=== PATIENT | male | born 1975 | race Two or more races ===

== ENCOUNTER 2021-05-08 19:15 | Inpatient (IN) | payer MEDICAID ==
[~2021-05-08] VITALS: Ht 167.6 cm; Wt 62.7 kg
[2021-05-08] MEDS ORDERED: VANCOMYCIN HCL 1.5 GM in DEXTROSE 5%-WATER 250 ML IV ONE (22:30)
[2021-05-08] MEDS ORDERED: CefTRIAXone 1 GM/DEXTROSE 50 ML IV ONE (22:30)
[2021-05-08 22:35] LABS: BASOPHILS % (AUTO) 0.6 % (0.0-2.0); EOSINOPHILS % (AUTO) 1.5 % (1.0-6.0); HEMATOCRIT 44.4 % (41-53); HEMOGLOBIN 15.1 g/dL (13.5-17.5); LYMPHOCYTES # (AUTO) 3.1 K/uL (1.0-4.8); LYMPHOCYTES % (AUTO) 19.4 % (22.0-44.0); MEAN CORPUSCULAR HEMOGLOBIN 28.7 pg (26.0-34.0); MEAN CORPUSCULAR VOLUME 84 fL (80-100); MONOCYTES # (AUTO) 1.4 K/uL (0.1-1.0); MONOCYTES % (AUTO) 8.7 % (2.0-9.0); NEUTROPHILS # (AUTO) 11.2 K/uL (1.8-7.7); NEUTROPHILS % (AUTO) 69.8 % (40.0-70.0); PLATELET COUNT (AUTO) 259 K/uL (150-450); RED BLOOD CELL COUNT(AUTO) 5.26 MIL/uL (4.50-5.90); RED CELL DISTRIBUTION WIDTH 12.7 % (11.5-14.5)
[2021-05-08] MEDS ORDERED: KETOROLAC TROMETHAMINE 30 MG/ML VIAL IVP ONE (22:45)
[2021-05-08 22:52] LABS: ANION GAP 5 mmol/L (8-16); CARBON DIOXIDE 33 mmol/L (22-29); CHLORIDE 103 mmol/L (98-107); CREATININE 0.82 mg/dL (0.60-1.30); GLOMERULAR FILTR. RATE CALC > 60 mL/min (>60); GLUCOSE,RANDOM 96 mg/dL (70-110); POTASSIUM 4.5 mmol/L (3.5-5.1); SODIUM SERUM 141 mmol/L (136-145); UREA NITROGEN, BLOOD 17 mg/dL (7-18)
[2021-05-08] MEDS ORDERED: GADOTERATE MEGLUMINE 10 MMOL/20 ML VIAL IVP ONE (22:54)
[2021-05-08 22:58] LABS: ALANINE AMINOTRANSFERASE 35 U/L (12-78); ALKALINE PHOSPHATASE 92 U/L (46-116); ASPARTATE AMINOTRANSFERASE 18 U/L (15-37); BILIRUBIN,TOTAL 0.4 mg/dL (0.1-1.0); TOTAL PROTEIN, SERUM 9.4 g/dL (6.4-8.2)
[2021-05-08] MEDS ORDERED: ONDANSETRON HCL 4 MG/2 ML VIAL IVP PRN (23:15)
[2021-05-08] MEDS ORDERED: SODIUM CHLORIDE 0.9% 1,000 ML IV ONE (23:15)
[2021-05-08] MEDS ORDERED: ACETAMINOPHEN 325 MG TABLET PO PRN (23:15)
[2021-05-08] MEDS ORDERED: MAGNESIUM HYDROXIDE SUSPENSION 30 ML UDCUP PO PRN (23:15)
[2021-05-09 00:14] LABS: COVID AG,FIA SOURCE NASOPHARYNGEAL
[2021-05-09 02:22] VITALS: BP 138/87
[2021-05-09 04:18] VITALS: BP 121/77
[2021-05-09] MEDS: MORPHINE SULFATE 2 MG/ML SYRINGE IVP PRN (06:20)
[2021-05-09] MEDS ORDERED: VANCOMYCIN HCL 1 GM/D5% WATER 200 ML IV ONE (08:00)
[2021-05-09 08:12] VITALS: BP 122/77
[2021-05-09] MEDS: FAMOTIDINE 20 MG TABLET PO SCH (09:00)
[2021-05-09] MEDS: DOCUSATE SODIUM 100 MG CAPSULE PO SCH ×2 (09:00→20:16)
[2021-05-09] MEDS: VANCOMYCIN HCL 750 MG in DEXTROSE 5%-WATER 250 ML IV SCH ×3 (09:37→23:34)
[2021-05-09] MEDS ORDERED: SODIUM CHLORIDE 0.9% 0 ML ONE ×2 (09:46→10:42)
[2021-05-09] MEDS ORDERED: SODIUM CHLORIDE 0.9% 1,000 ML ONE (09:49)
[2021-05-09] MEDS ORDERED: LIDOCAINE/PF 1% 30 ML VIAL ONE (09:49)
[2021-05-09] MEDS ORDERED: LIDOCAINE/PF 1% 30 ML VIAL PERC ONE (10:40)
[2021-05-09 15:41] VITALS: BP 120/76
[2021-05-09] MEDS: OxyCODONE HCL/ACETAMINOPHEN 5-325 MG TABLET PO PRN (17:03)
[2021-05-09 20:06] VITALS: BP 115/69
[2021-05-09] MEDS: CefTRIAXone 1 GM/DEXTROSE 50 ML IV SCH (22:28)
[2021-05-10 04:52] VITALS: BP 114/76
[2021-05-10] MEDS ORDERED: PROPOFOL 1% 20 ML VIAL IVP ONE (06:31)
[2021-05-10] MEDS ORDERED: KETOROLAC TROMETHAMINE 60 MG/2 ML VIAL IM ONE (06:31)
[2021-05-10] MEDS ORDERED: ONDANSETRON HCL 4 MG/2 ML VIAL IVP ONE (06:31)
[2021-05-10] MEDS ORDERED: FentaNYL CITRATE PF 100 MCG/2 ML VIAL IVP ONE (06:31)
[2021-05-10] MEDS ORDERED: LIDOCAINE/PF 2% 5 ML VIAL IM ONE (06:31)
[2021-05-10 07:28] LABS: BASOPHILS % (AUTO) 0.3 % (0.0-2.0); EOSINOPHILS % (AUTO) 2.4 % (1.0-6.0); HEMATOCRIT 39.3 % (41-53); HEMOGLOBIN 13.3 g/dL (13.5-17.5); LYMPHOCYTES # (AUTO) 3.1 K/uL (1.0-4.8); LYMPHOCYTES % (AUTO) 21.6 % (22.0-44.0); MEAN CORPUSCULAR HEMOGLOBIN 28.6 pg (26.0-34.0); MEAN CORPUSCULAR HGB CONC 33.9 G/dL (31.0-37.0); MEAN CORPUSCULAR VOLUME 85 fL (80-100); MONOCYTES # (AUTO) 1.5 K/uL (0.1-1.0); MONOCYTES % (AUTO) 10.2 % (2.0-9.0); NEUTROPHILS # (AUTO) 9.3 K/uL (1.8-7.7); NEUTROPHILS % (AUTO) 65.5 % (40.0-70.0); PLATELET COUNT (AUTO) 221 K/uL (150-450); RED BLOOD CELL COUNT(AUTO) 4.65 MIL/uL (4.50-5.90); RED CELL DISTRIBUTION WIDTH 12.6 % (11.5-14.5)
[2021-05-10 07:46] LABS: ANION GAP 11 mmol/L (8-16); CALCIUM, TOTAL 8.9 mg/dL (8.8-10.5); CARBON DIOXIDE 25 mmol/L (22-29); CHLORIDE 104 mmol/L (98-107); CREATININE 0.79 mg/dL (0.60-1.30); GLOMERULAR FILTR. RATE CALC > 60 mL/min (>60); GLUCOSE,RANDOM 83 mg/dL (70-110); POTASSIUM 3.9 mmol/L (3.5-5.1); SODIUM SERUM 140 mmol/L (136-145); UREA NITROGEN, BLOOD 13 mg/dL (7-18)
[2021-05-10 08:43] VITALS: BP 133/79
[2021-05-10] MEDS: FAMOTIDINE 20 MG TABLET PO SCH (09:02)
[2021-05-10] MEDS: DOCUSATE SODIUM 100 MG CAPSULE PO SCH ×2 (09:02→20:58)
[2021-05-10] MEDS: VANCOMYCIN HCL 750 MG in DEXTROSE 5%-WATER 250 ML IV SCH ×2 (09:13→16:57)
[2021-05-10] MEDS: OxyCODONE HCL/ACETAMINOPHEN 5-325 MG TABLET PO PRN (11:27)
[2021-05-10 16:01] VITALS: BP 130/75
[2021-05-10 20:20] VITALS: BP 125/89
[2021-05-10] MEDS: CefTRIAXone 1 GM/DEXTROSE 50 ML IV SCH (22:23)
[2021-05-11] MEDS: VANCOMYCIN HCL 750 MG in DEXTROSE 5%-WATER 250 ML IV SCH ×3 (00:01→16:08)
[2021-05-11 04:54] VITALS: BP 117/73
[2021-05-11] MEDS: FAMOTIDINE 20 MG TABLET PO SCH (08:30)
[2021-05-11] MEDS: MORPHINE SULFATE 2 MG/ML SYRINGE IVP PRN (08:34)
[2021-05-11 08:42] VITALS: BP 132/92
[2021-05-11] MEDS: DOCUSATE SODIUM 100 MG CAPSULE PO SCH ×2 (09:15→21:26)
[2021-05-11 09:25] LABS: ANION GAP 11 mmol/L (8-16); CALCIUM, TOTAL 9.3 mg/dL (8.8-10.5); CARBON DIOXIDE 24 mmol/L (22-29); CHLORIDE 102 mmol/L (98-107); CREATININE 0.91 mg/dL (0.60-1.30); GLOMERULAR FILTR. RATE CALC > 60 mL/min (>60); GLUCOSE,RANDOM 169 mg/dL (70-110); POTASSIUM 4.1 mmol/L (3.5-5.1); SODIUM SERUM 137 mmol/L (136-145); UREA NITROGEN, BLOOD 11 mg/dL (7-18); VANCOMYCIN,RANDOM 18.1 mcg/mL (25.0-50.0)
[2021-05-11 10:17] LABS: BASOPHILS % (AUTO) 0.4 % (0.0-2.0); EOSINOPHILS % (AUTO) 1.9 % (1.0-6.0); HEMATOCRIT 42.6 % (41-53); HEMOGLOBIN 14.3 g/dL (13.5-17.5); LYMPHOCYTES # (AUTO) 2.5 K/uL (1.0-4.8); LYMPHOCYTES % (AUTO) 17.6 % (22.0-44.0); MEAN CORPUSCULAR HEMOGLOBIN 28.2 pg (26.0-34.0); MEAN CORPUSCULAR HGB CONC 33.5 G/dL (31.0-37.0); MEAN CORPUSCULAR VOLUME 84 fL (80-100); MONOCYTES % (AUTO) 7.3 % (2.0-9.0); NEUTROPHILS # (AUTO) 10.3 K/uL (1.8-7.7); NEUTROPHILS % (AUTO) 72.8 % (40.0-70.0); PLATELET COUNT (AUTO) 257 K/uL (150-450); RED BLOOD CELL COUNT(AUTO) 5.05 MIL/uL (4.50-5.90); RED CELL DISTRIBUTION WIDTH 12.6 % (11.5-14.5)
[2021-05-11] MEDS ORDERED: GADOTERATE MEGLUMINE 10 MMOL/20 ML VIAL IVP ONE (15:53)
[2021-05-11 17:34] VITALS: BP 119/81
[2021-05-11 20:19] VITALS: BP 145/92
[2021-05-11] MEDS: CefTRIAXone 1 GM/DEXTROSE 50 ML IV SCH (21:29)
[2021-05-12] MEDS: VANCOMYCIN HCL 750 MG in DEXTROSE 5%-WATER 250 ML IV SCH ×3 (00:11→15:27)
[2021-05-12 05:13] VITALS: BP 135/90
[2021-05-12 07:46] LABS: ANION GAP 9 mmol/L (8-16); CALCIUM, TOTAL 9.4 mg/dL (8.8-10.5); CARBON DIOXIDE 26 mmol/L (22-29); CHLORIDE 102 mmol/L (98-107); CREATININE 0.76 mg/dL (0.60-1.30); GLOMERULAR FILTR. RATE CALC > 60 mL/min (>60); GLUCOSE,RANDOM 98 mg/dL (70-110); POTASSIUM 3.9 mmol/L (3.5-5.1); SODIUM SERUM 137 mmol/L (136-145); UREA NITROGEN, BLOOD 13 mg/dL (7-18); VANCOMYCIN,RANDOM 12.1 mcg/mL (25.0-50.0)
[2021-05-12] MEDS: DOCUSATE SODIUM 100 MG CAPSULE PO SCH ×2 (08:07→20:04)
[2021-05-12] MEDS: FAMOTIDINE 20 MG TABLET PO SCH (08:07)
[2021-05-12 08:11] VITALS: BP 120/89
[2021-05-12 08:57] LABS: BASOPHILS % (AUTO) 0.6 % (0.0-2.0); EOSINOPHILS % (AUTO) 3.1 % (1.0-6.0); HEMATOCRIT 42.5 % (41-53); HEMOGLOBIN 14.4 g/dL (13.5-17.5); LYMPHOCYTES # (AUTO) 2.8 K/uL (1.0-4.8); LYMPHOCYTES % (AUTO) 21.8 % (22.0-44.0); MEAN CORPUSCULAR HEMOGLOBIN 28.5 pg (26.0-34.0); MEAN CORPUSCULAR HGB CONC 33.8 G/dL (31.0-37.0); MEAN CORPUSCULAR VOLUME 84 fL (80-100); MONOCYTES # (AUTO) 1.3 K/uL (0.1-1.0); MONOCYTES % (AUTO) 10.6 % (2.0-9.0); NEUTROPHILS # (AUTO) 8.1 K/uL (1.8-7.7); NEUTROPHILS % (AUTO) 63.9 % (40.0-70.0); PLATELET COUNT (AUTO) 272 K/uL (150-450); RED BLOOD CELL COUNT(AUTO) 5.04 MIL/uL (4.50-5.90); RED CELL DISTRIBUTION WIDTH 12.6 % (11.5-14.5)
[2021-05-12 10:46] VITALS: BP 118/82
[2021-05-12] MEDS ORDERED: SULF-261 PO (11:17)
[2021-05-12 15:37] VITALS: BP 133/88
[2021-05-12] MEDS: OxyCODONE HCL/ACETAMINOPHEN 5-325 MG TABLET PO PRN (20:04)
[2021-05-12 20:24] VITALS: BP 127/85
[2021-05-12] MEDS: CefTRIAXone 1 GM/DEXTROSE 50 ML IV SCH (21:14)
[2021-05-13] MEDS: VANCOMYCIN HCL 750 MG in DEXTROSE 5%-WATER 250 ML IV SCH ×3 (01:02→15:28)
[2021-05-13 04:50] VITALS: BP 112/69
[2021-05-13 06:27] LABS: ANION GAP 10 mmol/L (8-16); CALCIUM, TOTAL 9.3 mg/dL (8.8-10.5); CARBON DIOXIDE 27 mmol/L (22-29); CHLORIDE 103 mmol/L (98-107); CREATININE 0.86 mg/dL (0.60-1.30); GLOMERULAR FILTR. RATE CALC > 60 mL/min (>60); GLUCOSE,RANDOM 97 mg/dL (70-110); POTASSIUM 3.9 mmol/L (3.5-5.1); SODIUM SERUM 140 mmol/L (136-145); UREA NITROGEN, BLOOD 11 mg/dL (7-18)
[2021-05-13] MEDS: FAMOTIDINE 20 MG TABLET PO SCH (08:11)
[2021-05-13] MEDS: DOCUSATE SODIUM 100 MG CAPSULE PO SCH (08:11)
[2021-05-13 08:23] LABS: BASOPHILS % (AUTO) 0.6 % (0.0-2.0); EOSINOPHILS % (AUTO) 4.4 % (1.0-6.0); HEMATOCRIT 40.5 % (41-53); HEMOGLOBIN 13.8 g/dL (13.5-17.5); LYMPHOCYTES # (AUTO) 2.4 K/uL (1.0-4.8); MEAN CORPUSCULAR HEMOGLOBIN 28.7 pg (26.0-34.0); MEAN CORPUSCULAR VOLUME 85 fL (80-100); MONOCYTES # (AUTO) 1.1 K/uL (0.1-1.0); MONOCYTES % (AUTO) 10.8 % (2.0-9.0); NEUTROPHILS % (AUTO) 60.2 % (40.0-70.0); PLATELET COUNT (AUTO) 265 K/uL (150-450); RED CELL DISTRIBUTION WIDTH 12.5 % (11.5-14.5)
[2021-05-13] MEDS ORDERED: POVIDONE-IODINE 10% 120 ML SOLUTION TP SCH (09:00)
[2021-05-13 09:06] VITALS: BP 118/67
== END 2021-05-13 17:00 | disposition home or self-care (01) | DRG 951 ==
LOC: EMS 19:16 → 6N 05-09 01:56 → 4E 05-09 15:54
PROVIDERS: ADMIT Internal Medicine; ATTEND Internal Medicine
PROC: 0LB70ZZ Excision of Right Hand Tendon, Open Approach (ICD-10-PCS; principal; 2021-05-09 10:12)
DX: L03.011 Cellulitis of right finger (principal); I10 Essential (primary) hypertension; L02.511 Cutaneous abscess of right hand; Z20.822 Contact with and (suspected) exposure to COVID-19; Z82.49 Family history of ischemic heart disease and other diseases of the circulatory system
CPT/HCPCS: 73220; 73223; 80048; 80053; 80202; 85025; 87070; 87081; 97110; 97162; 97166; 99285; G0378; J0696; J1885; J2270; J2405; J2704; J3010; J3370; J3490; J7030; J7060; Q9967